=== PATIENT | male | born 1970 | race Caucasian/White ===

== ENCOUNTER 2019-11-10 20:01 | Observation (INO) ==
[2019-11-10] MEDS: Nitroglycerin 0.4 MG TAB.SUBL SL SCH (20:32)
[2019-11-10 21:17] LABS: Basophils # 0.1 K/mcL (0.0-0.2); Basophils % 0.4 %; Eosinophils # 0.1 K/mcL (0.0-0.6); Eosinophils % 0.8 %; Hemoglobin 18.2 g/dL (12.9-16.9); Immature Granulocytes % 0.4 % (0-4); Lymphocytes % 18.7 %; Mean Corpuscular HGB Conc 35.7 g/dL (31.6-35.5); Mean Corpuscular Hemoglobin 33.6 pg (28.0-33.3); Mean Corpuscular Volume 94.3 fL (83.0-100.0); Mean Platelet Volume 10.1 fL (9.4-12.4); Monocytes % 6.5 %; Neutrophils # 11.5 K/mcL (1.6-8.9); Platelet Count 187 K/mcL (140-400); Red Blood Count 5.41 M/mcL (4.19-5.50); Red Cell Distribution Width 13.1 % (11.5-14.5); Segmented Neutrophils % 73.2 %; White Blood Count 15.8 K/mcL (4.3-11.1)
[2019-11-10 21:33] LABS: BUN/Creatinine Ratio 14 (6-26); Blood Urea Nitrogen 13 mg/dL (6-20); Calcium 9.5 mg/dL (8.6-10.3); Carbon Dioxide 18 mEq/L (23-29); Chloride 101 mEq/L (98-107); Glucose 258 mg/dL (70-105); Osmolality,Calculated 289 (280-300); Potassium 3.6 mEq/L (3.5-5.1); Sodium 135 mEq/L (136-145); Troponin I < 0.03 ng/mL (< 0.04); eGFR For African Americans > 60 (> 60); eGFR For Non-African Americans > 60 (> 60)
[2019-11-10] MEDS ORDERED: Nitroglycerin 1 INCH/GM PACKET TP ONE (22:15)
[2019-11-10] MEDS ORDERED: Nitroglycerin 0.4 MG TAB.SUBL SL PRN (22:41)
[2019-11-10] MEDS ORDERED: Aspirin 81 MG TAB.CHEW PO ONE (23:00)
[2019-11-10] MEDS ORDERED: Aspirin 81 MG TAB.CHEW ONE (23:04)
[2019-11-11] MEDS: Nitroglycerin 0.4 MG TAB.SUBL SL SCH ×2 (00:11→00:12)
[2019-11-11] MEDS ORDERED: *HR* Dextrose 50 % in Water (Syg) 50 ML SYRINGE IVP PRN (02:03)
[2019-11-11] MEDS ORDERED: Dextrose Gel 15 GM/37.5 ML TUBE PO PRN ×2 (02:03)
[2019-11-11] MEDS ORDERED: D5% in Water 1,000 ML IVC PRN (02:03)
[2019-11-11 02:34] LABS: Basophils # 0.1 K/mcL (0.0-0.2); Basophils % 0.5 %; Eosinophils # 0.2 K/mcL (0.0-0.6); Eosinophils % 1.2 %; Hematocrit 48.6 % (37.5-50.1); Hemoglobin 17.2 g/dL (12.9-16.9); INR 0.9; Immature Granulocytes % 0.4 % (0-4); Lymphocytes # 2.7 K/mcL (0.6-4.6); Lymphocytes % 20.9 %; Mean Corpuscular HGB Conc 35.4 g/dL (31.6-35.5); Mean Corpuscular Hemoglobin 32.8 pg (28.0-33.3); Mean Corpuscular Volume 92.7 fL (83.0-100.0); Mean Platelet Volume 9.8 fL (9.4-12.4); Monocytes # 0.7 K/mcL (0.0-1.3); Monocytes % 5.5 %; Neutrophils # 9.4 K/mcL (1.6-8.9); Platelet Count 184 K/mcL (140-400); Prothrombin Time 10.7 Seconds (9.4-12.1); Red Blood Count 5.24 M/mcL (4.19-5.50); Red Cell Distribution Width 13.1 % (11.5-14.5); Segmented Neutrophils % 71.5 %; White Blood Count 13.1 K/mcL (4.3-11.1)
[2019-11-11 02:36] LABS: Activated Partial Thrombo Time 30.7 Seconds (26.0-36.0)
[2019-11-11 02:46] LABS: Alanine Aminotransferase 17 Units/L (7-52); Albumin 4.1 g/dL (3.5-5.7); Albumin/Globulin Ratio 1.6 (1.1-2.2); Alkaline Phosphatase 84 Units/L (34-104); Aspartate Amino Transferase 16 Units/L (13-39); BUN/Creatinine Ratio 13 (6-26); Bilirubin,Total 0.5 mg/dL (0.3-1.0); Blood Urea Nitrogen 11 mg/dL (6-20); Calcium 8.7 mg/dL (8.6-10.3); Carbon Dioxide 20 mEq/L (23-29); Chloride 105 mEq/L (98-107); Globulin 2.5 g/dL (2.4-3.5); Glucose 131 mg/dL (70-105); Osmolality,Calculated 281 (280-300); Potassium 3.5 mEq/L (3.5-5.1); Sodium 135 mEq/L (136-145); Total Protein 6.6 g/dL (6.4-8.9); eGFR For African Americans > 60 (> 60); eGFR For Non-African Americans > 60 (> 60)
[2019-11-11 02:54] LABS: Troponin I < 0.03 ng/mL (< 0.04)
[2019-11-11] MEDS ORDERED: *HR* Heparin 5,000 UNIT/ML VIAL IVP ONE (03:46)
[2019-11-11] MEDS ORDERED: *HR* Heparin 5,000 UNIT/ML VIAL IVP PRN ×2 (03:46)
[2019-11-11] MEDS ORDERED: Heparin 25,000 UNIT/250 ML D5W 25,000 UNIT/250 ML IV.SOLN IVC SCH (04:00)
[2019-11-11 04:11] LABS: Hematocrit 47.6 % (37.5-50.1); Mean Corpuscular HGB Conc 35.7 g/dL (31.6-35.5); Mean Corpuscular Hemoglobin 32.9 pg (28.0-33.3); Mean Corpuscular Volume 92.1 fL (83.0-100.0); Platelet Count 181 K/mcL (140-400); Red Blood Count 5.17 M/mcL (4.19-5.50); Red Cell Distribution Width 13.2 % (11.5-14.5); White Blood Count 11.8 K/mcL (4.3-11.1)
[2019-11-11] MEDS: Insulin LISPRO 300 UNITS/3 ML VIAL SQ SCH ×2 (05:36→13:46)
[2019-11-11] MEDS ORDERED: (Ezetimibe [Zetia] 10 MG) PO SCH (09:00)
[2019-11-11] MEDS ORDERED: Aspirin Enteric Coated 81 MG Tablet PO SCH (09:00)
[2019-11-11] MEDS ORDERED: Budesonide/Formoterol 80/4.5 1 PUFF INH IH SCH (10:00)
[2019-11-11 10:23] LABS: Estimated Average Glucose 209 mg/dl
[2019-11-11 11:14] LABS: Troponin I < 0.03 ng/mL (< 0.04)
[2019-11-11 11:26] LABS: Thyroid Stimulating Hormone 1.347 mcIU/mL (0.340-5.600)
[2019-11-11 11:53] VITALS: BP 129/70
[2019-11-11] MEDS ORDERED: *HR* Rivaroxaban 10 MG TABLET PO SCH (17:00)
== END 2019-11-11 15:13 | disposition home or self-care (01) ==
LOC: EMEROOARM 20:01 → 3BNU 20:01
PROVIDERS: ADMIT Student in an Organized Health Care Education/Training Program; ATTEND Student in an Organized Health Care Education/Training Program

== ENCOUNTER 2020-04-17 07:59 | Observation (INO) ==
[2020-04-17 08:37] LABS: Basophils # 0.1 K/mcL (0.0-0.2); Basophils % 0.8 %; Eosinophils # 0.3 K/mcL (0.0-0.6); Eosinophils % 2.4 %; Hematocrit 50.5 % (37.5-50.1); Hemoglobin 17.7 g/dL (12.9-16.9); Immature Granulocytes % 0.5 % (0-4); Lymphocytes # 2.6 K/mcL (0.6-4.6); Lymphocytes % 19.8 %; Mean Corpuscular Hemoglobin 32.4 pg (28.0-33.3); Mean Corpuscular Volume 92.3 fL (83.0-100.0); Mean Platelet Volume 10.2 fL (9.4-12.4); Monocytes # 0.9 K/mcL (0.0-1.3); Monocytes % 7.1 %; Neutrophils # 9.1 K/mcL (1.6-8.9); Platelet Count 174 K/mcL (140-400); Red Blood Count 5.47 M/mcL (4.19-5.50); Red Cell Distribution Width 13.1 % (11.5-14.5); Segmented Neutrophils % 69.4 %; White Blood Count 13.1 K/mcL (4.3-11.1)
[2020-04-17 08:55] LABS: BUN/Creatinine Ratio 20 (6-26); Blood Urea Nitrogen 17 mg/dL (6-20); Calcium 9.3 mg/dL (8.6-10.3); Carbon Dioxide 18 mEq/L (23-29); Chloride 98 mEq/L (98-107); Glucose 370 mg/dL (70-105); Osmolality,Calculated 283 (280-300); Potassium 4.6 mEq/L (3.5-5.1); Sodium 128 mEq/L (136-145); Troponin I < 0.03 ng/mL (< 0.04); eGFR For African Americans > 60 (> 60); eGFR For Non-African Americans > 60 (> 60)
[2020-04-17] MEDS ORDERED: Aspirin 81 MG TAB.CHEW PO ONE (08:59)
[2020-04-17] MEDS ORDERED: *HR* FentaNYL (PF) 100 MCG/2 ML VIAL IVP ONE (08:59)
[2020-04-17 09:00] LABS: Activated Partial Thrombo Time 42.5 Seconds (26.0-36.0); INR 1.4; Prothrombin Time 16.4 Seconds (9.4-12.1)
[2020-04-17] MEDS ORDERED: Isovue-370 500 ML BOTTLE IVP ONE (09:06)
[2020-04-17 09:08] LABS: Thyroid Stimulating Hormone 2.517 mcIU/mL (0.340-5.600)
[2020-04-17] MEDS ORDERED: Ondansetron 4 MG/2 ML VIAL IVP PRN (11:48)
[2020-04-17] MEDS ORDERED: Naloxone 0.4 MG/ML INJ IVP PRN (11:48)
[2020-04-17] MEDS ORDERED: Acetaminophen 325 MG TABLET PO PRN (11:48)
[2020-04-17] MEDS: *HR* Rivaroxaban 10 MG TABLET PO SCH (18:29)
[2020-04-17] MEDS ORDERED: Ipratropium/Albuterol Neb 3 ML IH PRN (20:54)
[2020-04-17] MEDS ORDERED: D5% in Water 1,000 ML IVC PRN (21:21)
[2020-04-17] MEDS ORDERED: *HR* Dextrose 50 % in Water (Vial) 50 ML VIAL IVP PRN (21:21)
[2020-04-17] MEDS ORDERED: Dextrose Gel 15 GM/37.5 ML TUBE PO PRN ×2 (21:21)
[2020-04-17] MEDS ORDERED: Insulin LISPRO 300 UNITS/3 ML VIAL SQ SCH (21:30)
[2020-04-18] MEDS: Insulin LISPRO 300 UNITS/3 ML VIAL SQ SCH ×5 (00:04→20:23)
[2020-04-18 07:41] LABS: BUN/Creatinine Ratio 23 (6-26); Blood Urea Nitrogen 17 mg/dL (6-20); Carbon Dioxide 19 mEq/L (23-29); Chloride 101 mEq/L (98-107); Glucose 190 mg/dL (70-105); Osmolality,Calculated 281 (280-300); Potassium 4.3 mEq/L (3.5-5.1); Sodium 132 mEq/L (136-145); eGFR For African Americans > 60 (> 60); eGFR For Non-African Americans > 60 (> 60)
[2020-04-18 07:47] LABS: Basophils # 0.1 K/mcL (0.0-0.2); Basophils % 0.9 %; Eosinophils # 0.4 K/mcL (0.0-0.6); Eosinophils % 4.6 %; Hematocrit 50.3 % (37.5-50.1); Hemoglobin 17.1 g/dL (12.9-16.9); Immature Granulocytes % 0.4 % (0-4); Lymphocytes % 24.7 %; Mean Corpuscular Hemoglobin 31.8 pg (28.0-33.3); Mean Corpuscular Volume 93.7 fL (83.0-100.0); Mean Platelet Volume 10.5 fL (9.4-12.4); Monocytes # 0.6 K/mcL (0.0-1.3); Monocytes % 7.4 %; Platelet Count 161 K/mcL (140-400); Red Blood Count 5.37 M/mcL (4.19-5.50); Red Cell Distribution Width 13.2 % (11.5-14.5)
[2020-04-18 08:42] LABS: Estimated Average Glucose 258 mg/dl
[2020-04-18] MEDS: Nicotine 21 MG PATCH.TD24 TD SCH (08:45)
[2020-04-18] MEDS: Cholecalciferol (D-3) 1,000 UNIT (25MCG) TABLET PO SCH (10:06)
[2020-04-18] MEDS: Insulin DETEMIR 100 UNIT/ML X5UNITS SQ SCH (10:06)
[2020-04-18] MEDS: Gabapentin 300 MG CAPSULE PO SCH ×3 (10:07→20:22)
[2020-04-18] MEDS: lisinopriL 10 MG TABLET PO SCH ×2 (10:07→17:21)
[2020-04-18] MEDS: PATIENT TAKING PO SCH (10:07)
[2020-04-18] MEDS: *HR* Rivaroxaban 10 MG TABLET PO SCH (17:21)
[2020-04-18] MEDS ORDERED: Insulin LISPRO 300 UNITS/3 ML VIAL SQ SCH (21:00)
[2020-04-19 06:56] LABS: BUN/Creatinine Ratio 25 (6-26); Blood Urea Nitrogen 18 mg/dL (6-20); Carbon Dioxide 19 mEq/L (23-29); Chloride 101 mEq/L (98-107); Glucose 271 mg/dL (70-105); Osmolality,Calculated 285 (280-300); Phosphorous 3.4 mg/dL (2.7-4.5); Sodium 132 mEq/L (136-145); eGFR For African Americans > 60 (> 60); eGFR For Non-African Americans > 60 (> 60)
[2020-04-19] MEDS: Cholecalciferol (D-3) 1,000 UNIT (25MCG) TABLET PO SCH (08:13)
[2020-04-19] MEDS: Gabapentin 300 MG CAPSULE PO SCH ×3 (08:13→19:54)
[2020-04-19] MEDS: Insulin LISPRO 300 UNITS/3 ML VIAL SQ SCH ×3 (08:14→17:31)
[2020-04-19] MEDS: Insulin DETEMIR 100 UNIT/ML X5UNITS SQ SCH ×2 (08:20→12:00)
[2020-04-19] MEDS: Nicotine 21 MG PATCH.TD24 TD SCH (08:20)
[2020-04-19] MEDS: PATIENT TAKING PO SCH (08:21)
[2020-04-19] MEDS ORDERED: Insulin DETEMIR 100 UNIT/ML X5UNITS SQ ONE (10:52)
[2020-04-19] MEDS: *HR* Rivaroxaban 10 MG TABLET PO SCH (17:31)
[2020-04-19] MEDS: lisinopriL 10 MG TABLET PO SCH (17:31)
[2020-04-19] MEDS ORDERED: Insulin LISPRO 300 UNITS/3 ML VIAL SQ SCH (21:00)
[2020-04-20 06:41] VITALS: BP 107/66
[2020-04-20 08:45] LABS: BUN/Creatinine Ratio 19 (6-26); Blood Urea Nitrogen 14 mg/dL (6-20); Calcium 9.1 mg/dL (8.6-10.3); Carbon Dioxide 19 mEq/L (23-29); Chloride 102 mEq/L (98-107); Glucose 249 mg/dL (70-105); Osmolality,Calculated 285 (280-300); Phosphorous 3.5 mg/dL (2.7-4.5); Potassium 4.1 mEq/L (3.5-5.1); Sodium 133 mEq/L (136-145); eGFR For African Americans > 60 (> 60); eGFR For Non-African Americans > 60 (> 60)
[2020-04-20] MEDS: Insulin DETEMIR 100 UNIT/ML X5UNITS SQ SCH ×2 (08:46→09:06)
[2020-04-20] MEDS: Cholecalciferol (D-3) 1,000 UNIT (25MCG) TABLET PO SCH (08:46)
[2020-04-20] MEDS: Insulin LISPRO 300 UNITS/3 ML VIAL SQ SCH (08:47)
[2020-04-20] MEDS: Gabapentin 300 MG CAPSULE PO SCH (08:47)
[2020-04-20] MEDS: Nicotine 21 MG PATCH.TD24 TD SCH (08:48)
[2020-04-20] MEDS: PATIENT TAKING PO SCH (08:48)
== END 2020-04-20 11:04 | disposition home or self-care (01) ==
LOC: EMEROOARM 07:59 → 3BNU 07:59 → SUATTDRO 11:48 → 3BNU 11:49
PROVIDERS: ADMIT Pharmacist; ATTEND Internal Medicine

== ENCOUNTER 2020-05-21 11:13 | Observation (INO) ==
[2020-05-21 12:06] LABS: Basophils # 0.1 K/mcL (0.0-0.2); Basophils % 0.9 %; Eosinophils # 0.7 K/mcL (0.0-0.6); Eosinophils % 6.1 %; Hematocrit 50.7 % (37.5-50.1); Hemoglobin 17.1 g/dL (12.9-16.9); Immature Granulocytes % 0.4 % (0-4); Lymphocytes # 2.6 K/mcL (0.6-4.6); Lymphocytes % 23.5 %; Mean Corpuscular HGB Conc 33.7 g/dL (31.6-35.5); Mean Corpuscular Hemoglobin 31.4 pg (28.0-33.3); Mean Corpuscular Volume 93.2 fL (83.0-100.0); Mean Platelet Volume 9.7 fL (9.4-12.4); Monocytes # 0.8 K/mcL (0.0-1.3); Monocytes % 7.2 %; Neutrophils # 6.9 K/mcL (1.6-8.9); Platelet Count 207 K/mcL (140-400); Red Blood Count 5.44 M/mcL (4.19-5.50); Red Cell Distribution Width 12.8 % (11.5-14.5); Segmented Neutrophils % 61.9 %; White Blood Count 11.2 K/mcL (4.3-11.1)
[2020-05-21] MEDS: 0.9 % Sodium Chloride 1,000 ML IVC SCH ×2 (12:09→20:52)
[2020-05-21 12:29] LABS: BUN/Creatinine Ratio 19 (6-26); Blood Urea Nitrogen 15 mg/dL (6-20); Calcium 9.3 mg/dL (8.6-10.3); Carbon Dioxide 19 mEq/L (23-29); Chloride 104 mEq/L (98-107); Glucose 224 mg/dL (70-105); Osmolality,Calculated 292 (280-300); Potassium 4.7 mEq/L (3.5-5.1); Sodium 137 mEq/L (136-145); eGFR For African Americans > 60 (> 60); eGFR For Non-African Americans > 60 (> 60)
[2020-05-21 12:30] LABS: Troponin I < 0.03 ng/mL (< 0.04)
[2020-05-21] MEDS ORDERED: Naloxone 0.4 MG/ML INJ IVP PRN (13:01)
[2020-05-21] MEDS ORDERED: Dextrose Gel 15 GM/37.5 ML TUBE PO PRN ×2 (13:09)
[2020-05-21] MEDS ORDERED: D5% in Water 1,000 ML IVC PRN (13:09)
[2020-05-21] MEDS ORDERED: *HR* Dextrose 50 % in Water (Vial) 50 ML VIAL IVP PRN (13:09)
[2020-05-21] MEDS: Insulin LISPRO 300 UNITS/3 ML VIAL SQ SCH (16:28)
[2020-05-21] MEDS ORDERED: Insulin DETEMIR 100 UNIT/ML X5UNITS SQ SCH (22:00)
[2020-05-21] MEDS ORDERED: lisinopriL 10 MG TABLET PO SCH (22:00)
[2020-05-21] MEDS: Gabapentin 300 MG CAPSULE PO SCH (22:21)
[2020-05-22] MEDS: 0.9 % Sodium Chloride 1,000 ML IVC SCH (04:59)
[2020-05-22 05:56] LABS: Basophils # 0.1 K/mcL (0.0-0.2); Basophils % 0.7 %; Eosinophils # 0.8 K/mcL (0.0-0.6); Eosinophils % 8.2 %; Hematocrit 47.3 % (37.5-50.1); Immature Granulocytes % 0.4 % (0-4); Lymphocytes # 2.4 K/mcL (0.6-4.6); Lymphocytes % 24.3 %; Mean Corpuscular HGB Conc 32.6 g/dL (31.6-35.5); Mean Corpuscular Volume 95.2 fL (83.0-100.0); Mean Platelet Volume 9.7 fL (9.4-12.4); Monocytes # 0.8 K/mcL (0.0-1.3); Monocytes % 7.7 %; Neutrophils # 5.7 K/mcL (1.6-8.9); Platelet Count 196 K/mcL (140-400); Red Blood Count 4.97 M/mcL (4.19-5.50); Red Cell Distribution Width 12.8 % (11.5-14.5); Segmented Neutrophils % 58.7 %; White Blood Count 9.7 K/mcL (4.3-11.1)
[2020-05-22 05:58] LABS: Hemoglobin 15.4 g/dL (12.9-16.9)
[2020-05-22] MEDS ORDERED: Regadenoson 0.4 MG/5 ML SYRINGE IVP ONE ×2 (05:59→09:45)
[2020-05-22 06:21] LABS: BUN/Creatinine Ratio 19 (6-26); Blood Urea Nitrogen 13 mg/dL (6-20); Calcium 8.4 mg/dL (8.6-10.3); Carbon Dioxide 17 mEq/L (23-29); Chloride 105 mEq/L (98-107); Glucose 150 mg/dL (70-105); Osmolality,Calculated 285 (280-300); Potassium 3.9 mEq/L (3.5-5.1); Sodium 136 mEq/L (136-145); eGFR For African Americans > 60 (> 60); eGFR For Non-African Americans > 60 (> 60)
[2020-05-22] MEDS: Gabapentin 300 MG CAPSULE PO SCH (07:45)
[2020-05-22] MEDS: Insulin LISPRO 300 UNITS/3 ML VIAL SQ SCH ×2 (07:50→11:30)
[2020-05-22] MEDS ORDERED: Cholecalciferol (D-3) 1,000 UNIT (25MCG) TABLET PO SCH (09:00)
[2020-05-22] MEDS ORDERED: ZETIA 10MG PO SCH (09:00)
[2020-05-22] MEDS ORDERED: *HR* Rivaroxaban 10 MG TABLET PO SCH (09:00)
[2020-05-22 11:18] VITALS: BP 119/71
== END 2020-05-22 14:27 | disposition home or self-care (01) ==
LOC: EMEROOARM 11:13 → 3BNU 11:13
PROVIDERS: ADMIT Internal Medicine; ATTEND Internal Medicine

== ENCOUNTER 2020-08-11 21:43 | Inpatient (IN) ==
[2020-08-11 23:07] LABS: Basophils # 0.1 K/mcL (0.0-0.2); Basophils % 0.7 %; Eosinophils # 0.2 K/mcL (0.0-0.6); Eosinophils % 1.3 %; Hematocrit 40.6 % (37.5-50.1); Hemoglobin 13.2 g/dL (12.9-16.9); Immature Granulocytes % 0.4 % (0-4); Lymphocytes # 1.9 K/mcL (0.6-4.6); Lymphocytes % 15.9 %; Mean Corpuscular HGB Conc 32.5 g/dL (31.6-35.5); Mean Corpuscular Hemoglobin 29.9 pg (28.0-33.3); Mean Corpuscular Volume 91.9 fL (83.0-100.0); Mean Platelet Volume 10.1 fL (9.4-12.4); Monocytes # 1.1 K/mcL (0.0-1.3); Monocytes % 9.3 %; Neutrophils # 8.8 K/mcL (1.6-8.9); Platelet Count 262 K/mcL (140-400); Red Blood Count 4.42 M/mcL (4.19-5.50); Red Cell Distribution Width 12.8 % (11.5-14.5); Segmented Neutrophils % 72.4 %; White Blood Count 12.1 K/mcL (4.3-11.1)
[2020-08-11 23:31] LABS: Bilirubin,Urine Negative (Negative); Blood,Urine Negative (Negative); Clarity,Urine Clear (Clear); Color,Urine Yellow (Yellow); Glucose,Urine (UA) >=1000 mg/dL (Normal); Ketones,Urine Negative (Negative); Leukocyte Esterase,Urine Negative (Negative); Nitrite,Urine Negative (Negative); Protein,Urine Trace mg/dL (Neg-Trace); RBC,Urine 0-3 per hpf (0-3); Specific Gravity,Urine 1.025 (1.010-1.025); WBC,Urine 0-3 per hpf (0-3)
[2020-08-11 23:38] LABS: BUN/Creatinine Ratio 13 (6-26); Blood Urea Nitrogen 10 mg/dL (6-20); Calcium 8.9 mg/dL (8.6-10.3); Carbon Dioxide 22 mEq/L (23-29); Chloride 96 mEq/L (98-107); Glucose 407 mg/dL (70-105); Osmolality,Calculated 286 (280-300); Sodium 130 mEq/L (136-145); Troponin I 0.06 ng/mL (< 0.04); eGFR For African Americans > 60 (> 60); eGFR For Non-African Americans > 60 (> 60)
[2020-08-11] MEDS ORDERED: Isovue-370 500 ML BOTTLE IVP ONE (23:54)
[2020-08-11] MEDS ORDERED: 0.9 % Sodium Chloride 1,000 ML IVC ONE (23:56)
[2020-08-12 00:25] LABS: Adenovirus Not Detected (Not Detect); Bordetella Pertussis Not Detected (Not Detect); Chlamydophila pneumoniae Not Detected (Not Detect); Coronavirus 229E Not Detected (Not Detect); Coronavirus HKU1 Not Detected (Not Detect); Coronavirus NL63 Not Detected (Not Detect); Coronavirus OC43 Not Detected (Not Detect); Human Metapneumovirus Not Detected (Not Detect); Human Rhinovirus/Enterovirus Not Detected (Not Detect); Influenza A Subtype 2009 H1 Not Detected (Not Detect); Influenza B Not Detected (Not Detect); Mycoplasma pneumoniae Not Detected (Not Detect); Parainfluenza Virus 1 Not Detected (Not Detect); Parainfluenza Virus 2 Not Detected (Not Detect); Parainfluenza Virus 3 Not Detected (Not Detect); Parainfluenza Virus 4 Not Detected (Not Detect); Respiratory Syncytial Virus Not Detected (Not Detect); SARS-CoV-2 Not Detected (Not Detect)
[2020-08-12] MEDS ORDERED: *HR* Heparin 5,000 UNIT/ML VIAL IVP ONE (00:48)
[2020-08-12] MEDS ORDERED: *HR* Heparin 5,000 UNIT/ML VIAL IVP PRN ×2 (00:48)
[2020-08-12] MEDS ORDERED: Piperacillin/Tazobactam 3.375 GM in 0.9 % Sodium Chloride Mini Bag 100 ML IVPB ONE (00:55)
[2020-08-12] MEDS ORDERED: Heparin 25,000UNIT/250ML 1/2NS 25,000 UNIT/250 ML IV.SOLN IVC SCH (01:00)
[2020-08-12] MEDS ORDERED: Naloxone 0.4 MG/ML INJ IVP PRN (02:56)
[2020-08-12] MEDS: Acetaminophen 325 MG TABLET PO PRN ×2 (04:42→18:07)
[2020-08-12 06:24] LABS: Hematocrit 38.6 % (37.5-50.1); Hemoglobin 12.5 g/dL (12.9-16.9); Mean Corpuscular HGB Conc 32.4 g/dL (31.6-35.5); Mean Corpuscular Hemoglobin 29.6 pg (28.0-33.3); Mean Corpuscular Volume 91.5 fL (83.0-100.0); Mean Platelet Volume 9.6 fL (9.4-12.4); Platelet Count 219 K/mcL (140-400); Red Blood Count 4.22 M/mcL (4.19-5.50); Red Cell Distribution Width 13.1 % (11.5-14.5); White Blood Count 11.1 K/mcL (4.3-11.1)
[2020-08-12 06:28] LABS: Heparin anti-factor XA UFH 0.57 IU/mL (0.30-0.70); INR 1.5; Prothrombin Time 16.7 Seconds (9.4-12.1)
[2020-08-12 06:47] LABS: Alanine Aminotransferase 82 Units/L (7-52); Albumin 3.8 g/dL (3.5-5.7); Alkaline Phosphatase 338 Units/L (34-104); Aspartate Amino Transferase 65 Units/L (13-39); BUN/Creatinine Ratio 11 (6-26); Bilirubin,Total 0.8 mg/dL (0.3-1.0); Blood Urea Nitrogen 8 mg/dL (6-20); Calcium 9.1 mg/dL (8.6-10.3); Carbon Dioxide 23 mEq/L (23-29); Chloride 100 mEq/L (98-107); Globulin 3.7 g/dL (2.4-3.5); Glucose 316 mg/dL (70-105); Magnesium 1.8 mg/dL (1.6-2.6); Osmolality,Calculated 284 (280-300); Phosphorous 3.1 mg/dL (2.7-4.5); Potassium 3.9 mEq/L (3.5-5.1); Sodium 132 mEq/L (136-145); Total Protein 7.5 g/dL (6.4-8.9); Troponin I 0.06 ng/mL (< 0.04); eGFR For African Americans > 60 (> 60); eGFR For Non-African Americans > 60 (> 60)
[2020-08-12] MEDS ORDERED: Perflutren Lipid Microsphere 1.3 ML in 0.9 % Sodium Chloride 8.7 ML IVP PRN (07:05)
[2020-08-12] MEDS ORDERED: *HR* Dextrose 50 % in Water (Vial) 50 ML VIAL IVP PRN (07:51)
[2020-08-12] MEDS ORDERED: D5% in Water 1,000 ML IVC PRN (07:51)
[2020-08-12] MEDS ORDERED: Dextrose Gel 15 GM/37.5 ML TUBE PO PRN ×2 (07:51)
[2020-08-12] MEDS ORDERED: Insulin Human Regular 5 UNIT in 0.9 % Sodium Chloride 10 ML IV ONE (07:55)
[2020-08-12] MEDS: Heparin 25,000UNIT/250ML 1/2NS 25,000 UNIT/250 ML IV.SOLN IVC SCH (07:59)
[2020-08-12] MEDS ORDERED: Vancomycin 500 MG in 0.9 % Sodium Chloride Mini Bag 100 ML IVPB ONE (08:00)
[2020-08-12] MEDS ORDERED: Ipratropium/Albuterol Neb 3 ML IH PRN (08:14)
[2020-08-12] MEDS: Piperacillin/Tazobactam 3.375 GM in 0.9 % Sodium Chloride Mini Bag 100 ML IVPB SCH ×3 (08:15→23:55)
[2020-08-12] MEDS: MetroNIDAZOLE 500 MG/100 ML 500 MG/100 ML BAG IVPB SCH ×3 (08:16→23:52)
[2020-08-12] MEDS: Gabapentin 300 MG CAPSULE PO SCH ×3 (09:43→20:34)
[2020-08-12] MEDS: SUB Q INSULIN DEVICE SQ SCH (09:43)
[2020-08-12 11:42] LABS: ABG Base Excess 2 mEq/L (-2 to 3); ABG HCO3 25 mEq/L (21-27); ABG Oxygen Saturation 92 % (95-98); ABG PCO2 33 mmHg (35-45); ABG PH 7.49 pH Units (7.32-7.45); ABG PO2 58 mmHg (85-104); ABG TCO2 26 mEq/L (20-26)
[2020-08-12] MEDS ORDERED: Vancomycin 1,500 MG/265 ML IV.SOLN IVPB SCH (19:00)
[2020-08-12] MEDS: Insulin DETEMIR 100 UNIT/ML X5UNITS SQ SCH (22:30)
[2020-08-12] MEDS: Insulin LISPRO 300 UNITS/3 ML VIAL SQ SCH (23:12)
[2020-08-13] MEDS: Heparin 25,000UNIT/250ML 1/2NS 25,000 UNIT/250 ML IV.SOLN IVC SCH (01:45)
[2020-08-13 01:52] LABS: Hematocrit 38.1 % (37.5-50.1); Hemoglobin 12.1 g/dL (12.9-16.9); Mean Corpuscular HGB Conc 31.8 g/dL (31.6-35.5); Mean Corpuscular Hemoglobin 29.5 pg (28.0-33.3); Mean Corpuscular Volume 92.9 fL (83.0-100.0); Mean Platelet Volume 9.9 fL (9.4-12.4); Platelet Count 227 K/mcL (140-400); White Blood Count 10.6 K/mcL (4.3-11.1)
[2020-08-13 02:11] LABS: Alanine Aminotransferase 70 Units/L (7-52); Albumin 3.6 g/dL (3.5-5.7); Albumin/Globulin Ratio 0.9 (1.1-2.2); Alkaline Phosphatase 361 Units/L (34-104); Aspartate Amino Transferase 39 Units/L (13-39); BUN/Creatinine Ratio 13 (6-26); Bilirubin,Total 0.8 mg/dL (0.3-1.0); Blood Urea Nitrogen 9 mg/dL (6-20); Calcium 9.2 mg/dL (8.6-10.3); Carbon Dioxide 24 mEq/L (23-29); Chloride 99 mEq/L (98-107); Globulin 3.9 g/dL (2.4-3.5); Glucose 261 mg/dL (70-105); Magnesium 1.8 mg/dL (1.6-2.6); Osmolality,Calculated 280 (280-300); Phosphorous 2.7 mg/dL (2.7-4.5); Potassium 3.9 mEq/L (3.5-5.1); Sodium 131 mEq/L (136-145); Total Protein 7.5 g/dL (6.4-8.9); eGFR For African Americans > 60 (> 60); eGFR For Non-African Americans > 60 (> 60)
[2020-08-13] MEDS: Insulin LISPRO 300 UNITS/3 ML VIAL SQ SCH ×10 (04:58→23:35)
[2020-08-13] MEDS: Piperacillin/Tazobactam 3.375 GM in 0.9 % Sodium Chloride Mini Bag 100 ML IVPB SCH (09:55)
[2020-08-13] MEDS: MetroNIDAZOLE 500 MG/100 ML 500 MG/100 ML BAG IVPB SCH (09:56)
[2020-08-13] MEDS: Gabapentin 300 MG CAPSULE PO SCH ×3 (09:56→21:16)
[2020-08-13] MEDS: SUB Q INSULIN DEVICE SQ SCH (09:56)
[2020-08-13] MEDS ORDERED: Furosemide 40 MG/4 ML VIAL IVP SCH (11:45)
[2020-08-13] MEDS: Insulin DETEMIR 100 UNIT/ML X5UNITS SQ SCH (21:16)
[2020-08-13] MEDS: Acetaminophen 325 MG TABLET PO PRN (21:27)
[2020-08-14 01:02] LABS: Hematocrit 39.8 % (37.5-50.1); Hemoglobin 12.8 g/dL (12.9-16.9); Mean Corpuscular HGB Conc 32.2 g/dL (31.6-35.5); Mean Corpuscular Hemoglobin 29.1 pg (28.0-33.3); Mean Corpuscular Volume 90.5 fL (83.0-100.0); Mean Platelet Volume 9.7 fL (9.4-12.4); Platelet Count 234 K/mcL (140-400); Red Cell Distribution Width 12.9 % (11.5-14.5); White Blood Count 9.9 K/mcL (4.3-11.1)
[2020-08-14 01:21] LABS: BUN/Creatinine Ratio 13 (6-26); Blood Urea Nitrogen 9 mg/dL (6-20); Calcium 8.9 mg/dL (8.6-10.3); Carbon Dioxide 25 mEq/L (23-29); Chloride 96 mEq/L (98-107); Glucose 319 mg/dL (70-105); Magnesium 1.8 mg/dL (1.6-2.6); Osmolality,Calculated 281 (280-300); Phosphorous 3.1 mg/dL (2.7-4.5); Potassium 3.8 mEq/L (3.5-5.1); Sodium 130 mEq/L (136-145); eGFR For African Americans > 60 (> 60); eGFR For Non-African Americans > 60 (> 60)
[2020-08-14] MEDS: Acetaminophen 325 MG TABLET PO PRN (02:01)
[2020-08-14] MEDS: Insulin LISPRO 300 UNITS/3 ML VIAL SQ SCH (06:19)
[2020-08-14] MEDS: SUB Q INSULIN DEVICE SQ SCH (10:00)
[2020-08-14] MEDS: Gabapentin 300 MG CAPSULE PO SCH ×3 (10:01→21:41)
[2020-08-14] MEDS ORDERED: Insulin LISPRO 300 UNITS/3 ML VIAL SQ SCH ×2 (11:30→12:00)
[2020-08-14] MEDS ORDERED: *HR* PHENYLEPHRINE 1,000 MCG/10 ML SYRINGE IVP ONE (11:37)
[2020-08-14] MEDS ORDERED: *HR* Etomidate 20 MG/10 ML AMPUL IVP ONE (11:37)
[2020-08-14] MEDS ORDERED: *HR* Rocuronium Bromide 50 MG/5 ML VIAL ONE ×3 (11:37→15:01)
[2020-08-14] MEDS ORDERED: *HR* FentaNYL (PF) 250 MCG/5 ML VIAL ONE (11:39)
[2020-08-14] MEDS ORDERED: *HR* Midazolam HCl 5 MG/5 ML VIAL IVP ONE (11:39)
[2020-08-14 13:03] LABS: Estimated Average Glucose 220 mg/dl
[2020-08-14] MEDS ORDERED: EPHEDrine 50 MG/ML VIAL ONE (13:49)
[2020-08-14] MEDS ORDERED: ceFAZolin 2,000 MG in Water for inj. (sterile) 20 ML IVP ONE (13:55)
[2020-08-14] MEDS ORDERED: Ondansetron 4 MG/2 ML VIAL IVP PRN ×2 (15:59→17:13)
[2020-08-14] MEDS ORDERED: Ketorolac 30 MG/ML VIAL IVP PRN (15:59)
[2020-08-14] MEDS ORDERED: *HR* OxyCODONE Immed Rel 5 MG TABLET PO PRN (15:59)
[2020-08-14] MEDS ORDERED: *HR* HYDROmorphone PF 0.5 MG/0.5 ML SYRINGE IVP PRN (15:59)
[2020-08-14] MEDS ORDERED: Ringers Solution, Lactated 1,000 ML IVC SCH (16:00)
[2020-08-14] MEDS ORDERED: Ipratropium/Albuterol Neb 3 ML IH PRN (17:13)
[2020-08-14] MEDS ORDERED: D5% in Water 1,000 ML IVC PRN (17:13)
[2020-08-14] MEDS ORDERED: Naloxone 0.4 MG/ML INJ IVP PRN (17:13)
[2020-08-14] MEDS ORDERED: Acetaminophen 325 MG TABLET PO PRN (17:13)
[2020-08-14] MEDS ORDERED: Dextrose Gel 15 GM/37.5 ML TUBE PO PRN ×2 (17:13)
[2020-08-14] MEDS ORDERED: *HR* Dextrose 50 % in Water (Vial) 50 ML VIAL IVP PRN (17:13)
[2020-08-14] MEDS: *HR* HYDROcodone/Acet 5/325 mg TABLET PO PRN (18:55)
[2020-08-14] MEDS: 0.9 % Sodium Chloride 1,000 ML IVC SCH (18:55)
[2020-08-14] MEDS: Patient Taking Own Medication 1 EACH SQ SCH (18:56)
[2020-08-14] MEDS: Ipratropium/Albuterol Neb 3 ML IH SCH ×2 (20:16→20:21)
[2020-08-14] MEDS: Famotidine 20 MG TABLET PO SCH (20:27)
[2020-08-14] MEDS: *HR* Heparin 5,000 UNIT/ML VIAL SQ SCH (20:28)
[2020-08-14] MEDS ORDERED: Insulin DETEMIR 100 UNIT/ML X5UNITS SQ SCH ×2 (21:00)
[2020-08-15] MEDS: Ipratropium/Albuterol Neb 3 ML IH SCH ×3 (00:09→08:03)
[2020-08-15] MEDS: *HR* HYDROcodone/Acet 5/325 mg TABLET PO PRN ×5 (02:00→23:58)
[2020-08-15] MEDS: 0.9 % Sodium Chloride 1,000 ML IVC SCH (02:00)
[2020-08-15 02:17] LABS: Hematocrit 38.4 % (37.5-50.1); Hemoglobin 12.3 g/dL (12.9-16.9); Mean Corpuscular Volume 93.7 fL (83.0-100.0); Mean Platelet Volume 9.7 fL (9.4-12.4); Platelet Count 226 K/mcL (140-400); Red Cell Distribution Width 13.2 % (11.5-14.5); White Blood Count 13.9 K/mcL (4.3-11.1)
[2020-08-15 02:38] LABS: BUN/Creatinine Ratio 20 (6-26); Blood Urea Nitrogen 13 mg/dL (6-20); Calcium 8.3 mg/dL (8.6-10.3); Carbon Dioxide 20 mEq/L (23-29); Chloride 100 mEq/L (98-107); Glucose 338 mg/dL (70-105); Magnesium 1.7 mg/dL (1.6-2.6); Osmolality,Calculated 285 (280-300); Phosphorous 3.1 mg/dL (2.7-4.5); Potassium 4.7 mEq/L (3.5-5.1); Sodium 131 mEq/L (136-145); eGFR For African Americans > 60 (> 60); eGFR For Non-African Americans > 60 (> 60)
[2020-08-15] MEDS: *HR* Heparin 5,000 UNIT/ML VIAL SQ SCH ×3 (05:45→20:12)
[2020-08-15] MEDS ORDERED: Insulin LISPRO 300 UNITS/3 ML VIAL SQ SCH ×2 (07:30→08:00)
[2020-08-15] MEDS: Gabapentin 300 MG CAPSULE PO SCH ×4 (07:36→20:13)
[2020-08-15] MEDS: Famotidine 20 MG TABLET PO SCH ×2 (07:36→20:12)
[2020-08-15] MEDS ORDERED: Dextrose Gel 15 GM/37.5 ML TUBE PO PRN ×2 (10:36)
[2020-08-15] MEDS ORDERED: D5% in Water 1,000 ML IVC PRN (10:36)
[2020-08-15] MEDS ORDERED: *HR* Dextrose 50 % in Water (Vial) 50 ML VIAL IVP PRN (10:36)
[2020-08-15] MEDS: Insulin LISPRO 300 UNITS/3 ML VIAL SQ SCH ×2 (12:13→17:08)
[2020-08-15] MEDS: Levalbuterol Neb 0.63 MG/3 ML IH SCH ×2 (16:00→21:35)
[2020-08-15] MEDS: Ipratropium Neb 0.5 MG NEBULIZER IH SCH ×2 (16:00→21:35)
[2020-08-15] MEDS ORDERED: Insulin DETEMIR 100 UNIT/ML X5UNITS SQ ONE (16:37)
[2020-08-15] MEDS: Patient Taking Own Medication 1 EACH SQ SCH (16:58)
[2020-08-15] MEDS: Insulin DETEMIR 100 UNIT/ML X5UNITS SQ SCH (20:13)
[2020-08-15] MEDS ORDERED: Insulin DETEMIR 100 UNIT/ML X5UNITS SQ SCH (21:00)
[2020-08-16] MEDS: Levalbuterol Neb 0.63 MG/3 ML IH SCH ×4 (04:07→22:27)
[2020-08-16] MEDS: Ipratropium Neb 0.5 MG NEBULIZER IH SCH ×4 (04:07→22:27)
[2020-08-16 05:15] LABS: Basophils # 0.1 K/mcL (0.0-0.2); Basophils % 0.5 %; Eosinophils # 0.2 K/mcL (0.0-0.6); Hematocrit 35.8 % (37.5-50.1); Hemoglobin 11.3 g/dL (12.9-16.9); Immature Granulocytes % 0.4 % (0-4); Lymphocytes # 1.2 K/mcL (0.6-4.6); Lymphocytes % 12.3 %; Mean Corpuscular HGB Conc 31.6 g/dL (31.6-35.5); Mean Corpuscular Hemoglobin 29.5 pg (28.0-33.3); Mean Corpuscular Volume 93.5 fL (83.0-100.0); Mean Platelet Volume 9.9 fL (9.4-12.4); Monocytes # 0.8 K/mcL (0.0-1.3); Monocytes % 8.4 %; Neutrophils # 7.2 K/mcL (1.6-8.9); Platelet Count 241 K/mcL (140-400); Red Blood Count 3.83 M/mcL (4.19-5.50); Red Cell Distribution Width 13.2 % (11.5-14.5); Segmented Neutrophils % 76.4 %; White Blood Count 9.4 K/mcL (4.3-11.1)
[2020-08-16] MEDS: *HR* Heparin 5,000 UNIT/ML VIAL SQ SCH ×3 (05:27→20:54)
[2020-08-16 05:37] LABS: BUN/Creatinine Ratio 21 (6-26); Blood Urea Nitrogen 14 mg/dL (6-20); Calcium 8.7 mg/dL (8.6-10.3); Carbon Dioxide 26 mEq/L (23-29); Chloride 97 mEq/L (98-107); Glucose 365 mg/dL (70-105); Magnesium 1.9 mg/dL (1.6-2.6); Osmolality,Calculated 285 (280-300); Potassium 4.9 mEq/L (3.5-5.1); Sodium 130 mEq/L (136-145); eGFR For African Americans > 60 (> 60); eGFR For Non-African Americans > 60 (> 60)
[2020-08-16] MEDS: CREON 24000 UNIT PO SCH ×3 (08:18→16:50)
[2020-08-16] MEDS: Famotidine 20 MG TABLET PO SCH ×2 (08:18→20:55)
[2020-08-16] MEDS: Gabapentin 300 MG CAPSULE PO SCH ×3 (08:18→20:56)
[2020-08-16] MEDS: Insulin DETEMIR 100 UNIT/ML X5UNITS SQ SCH ×2 (08:22→20:56)
[2020-08-16] MEDS: *HR* HYDROcodone/Acet 5/325 mg TABLET PO PRN ×3 (08:25→18:36)
[2020-08-16] MEDS: Insulin LISPRO 300 UNITS/3 ML VIAL SQ SCH ×4 (08:31→16:49)
[2020-08-16] MEDS ORDERED: Insulin LISPRO 300 UNITS/3 ML VIAL SQ SCH (12:00)
[2020-08-16] MEDS: Patient Taking Own Medication 1 EACH SQ SCH (20:50)
[2020-08-17 02:47] LABS: Basophils # 0.1 K/mcL (0.0-0.2); Basophils % 0.6 %; Eosinophils # 0.4 K/mcL (0.0-0.6); Eosinophils % 4.1 %; Hematocrit 37.6 % (37.5-50.1); Hemoglobin 11.9 g/dL (12.9-16.9); Immature Granulocytes % 0.3 % (0-4); Lymphocytes # 1.4 K/mcL (0.6-4.6); Lymphocytes % 15.4 %; Mean Corpuscular HGB Conc 31.6 g/dL (31.6-35.5); Mean Corpuscular Hemoglobin 28.6 pg (28.0-33.3); Mean Corpuscular Volume 90.4 fL (83.0-100.0); Mean Platelet Volume 9.6 fL (9.4-12.4); Monocytes # 0.8 K/mcL (0.0-1.3); Neutrophils # 6.6 K/mcL (1.6-8.9); Platelet Count 254 K/mcL (140-400); Red Blood Count 4.16 M/mcL (4.19-5.50); Segmented Neutrophils % 70.6 %; White Blood Count 9.4 K/mcL (4.3-11.1)
[2020-08-17 03:10] LABS: BUN/Creatinine Ratio 27 (6-26); Blood Urea Nitrogen 14 mg/dL (6-20); Calcium 8.7 mg/dL (8.6-10.3); Carbon Dioxide 25 mEq/L (23-29); Chloride 95 mEq/L (98-107); Glucose 301 mg/dL (70-105); Magnesium 1.9 mg/dL (1.6-2.6); Osmolality,Calculated 282 (280-300); Potassium 4.3 mEq/L (3.5-5.1); Sodium 130 mEq/L (136-145); eGFR For African Americans > 60 (> 60); eGFR For Non-African Americans > 60 (> 60)
[2020-08-17] MEDS: Levalbuterol Neb 0.63 MG/3 ML IH SCH ×4 (03:57→22:13)
[2020-08-17] MEDS: Ipratropium Neb 0.5 MG NEBULIZER IH SCH ×4 (03:57→22:13)
[2020-08-17] MEDS: *HR* Heparin 5,000 UNIT/ML VIAL SQ SCH ×3 (05:07→20:32)
[2020-08-17] MEDS: Famotidine 20 MG TABLET PO SCH ×2 (08:19→20:33)
[2020-08-17] MEDS: Gabapentin 300 MG CAPSULE PO SCH ×3 (08:19→20:33)
[2020-08-17] MEDS: Insulin LISPRO 300 UNITS/3 ML VIAL SQ SCH ×5 (08:26→17:55)
[2020-08-17] MEDS: CREON 24000 UNIT PO SCH ×3 (08:27→17:56)
[2020-08-17] MEDS ORDERED: *HR* Glimepiride 4 MG TABLET PO SCH (09:00)
[2020-08-17] MEDS: *HR* HYDROcodone/Acet 5/325 mg TABLET PO PRN ×3 (09:02→19:46)
[2020-08-17] MEDS: Insulin DETEMIR 100 UNIT/ML X5UNITS SQ SCH ×2 (09:02→20:39)
[2020-08-17] MEDS ORDERED: *HR* Metformin 500 MG TABLET PO SCH (17:00)
[2020-08-17] MEDS ORDERED: Insulin DETEMIR 100 UNIT/ML X5UNITS SQ ONE (17:01)
[2020-08-17] MEDS: Patient Taking Own Medication 1 EACH SQ SCH (17:56)
[2020-08-17] MEDS: (Insulin Pump Cartridge [Insulin Pump] 1 DEVICE) SQ SCH (17:56)
[2020-08-18] MEDS: *HR* HYDROcodone/Acet 5/325 mg TABLET PO PRN (00:44)
[2020-08-18 02:55] LABS: Basophils # 0.1 K/mcL (0.0-0.2); Basophils % 0.6 %; Eosinophils # 0.5 K/mcL (0.0-0.6); Eosinophils % 5.3 %; Hematocrit 38.1 % (37.5-50.1); Hemoglobin 12.1 g/dL (12.9-16.9); Immature Granulocytes % 0.5 % (0-4); Lymphocytes % 20.4 %; Mean Corpuscular HGB Conc 31.8 g/dL (31.6-35.5); Mean Corpuscular Hemoglobin 28.8 pg (28.0-33.3); Mean Corpuscular Volume 90.7 fL (83.0-100.0); Mean Platelet Volume 9.8 fL (9.4-12.4); Neutrophils # 6.1 K/mcL (1.6-8.9); Platelet Count 281 K/mcL (140-400); Segmented Neutrophils % 63.2 %; White Blood Count 9.6 K/mcL (4.3-11.1)
[2020-08-18 03:12] LABS: BUN/Creatinine Ratio 27 (6-26); Blood Urea Nitrogen 18 mg/dL (6-20); Calcium 9.1 mg/dL (8.6-10.3); Carbon Dioxide 25 mEq/L (23-29); Chloride 99 mEq/L (98-107); Glucose 194 mg/dL (70-105); Osmolality,Calculated 281 (280-300); Potassium 4.6 mEq/L (3.5-5.1); Sodium 132 mEq/L (136-145); eGFR For African Americans > 60 (> 60); eGFR For Non-African Americans > 60 (> 60)
[2020-08-18 04:14] VITALS: BP 100/76
[2020-08-18] MEDS: Levalbuterol Neb 0.63 MG/3 ML IH SCH ×2 (04:22→09:29)
[2020-08-18] MEDS: Ipratropium Neb 0.5 MG NEBULIZER IH SCH ×2 (04:22→09:29)
[2020-08-18] MEDS: *HR* Heparin 5,000 UNIT/ML VIAL SQ SCH (05:36)
[2020-08-18] MEDS: CREON 24000 UNIT PO SCH ×2 (08:20→12:05)
[2020-08-18] MEDS: Gabapentin 300 MG CAPSULE PO SCH (08:20)
[2020-08-18] MEDS: Famotidine 20 MG TABLET PO SCH (08:21)
[2020-08-18] MEDS: Insulin LISPRO 300 UNITS/3 ML VIAL SQ SCH ×4 (08:22→12:04)
[2020-08-18] MEDS: Insulin DETEMIR 100 UNIT/ML X5UNITS SQ SCH (08:22)
[2020-08-18] MEDS: (Insulin Pump Cartridge [Insulin Pump] 1 DEVICE) SQ SCH (08:23)
[2020-08-18] MEDS ORDERED: FLU Vac QV 20-21 (6Month+)/PF 0.5 ML SYRINGE IM ONE (11:43)
== END 2020-08-18 13:33 | disposition home or self-care (01) | DRG 163 ==
LOC: EMEROOARM 21:43 → 2ANU 21:43 → SUATTDRO 08-12 01:41 → 2ANU 08-12 03:15 → 2NNU 08-12 10:06 → SUATTDRO 08-13 15:28
PROVIDERS: ADMIT Family Medicine; ATTEND Pharmacist

== ENCOUNTER 2021-05-03 22:57 | Observation (INO) ==
[2021-05-03 23:52] LABS: Basophils # 0.1 K/mcL (0.0-0.2); Basophils % 0.5 %; Eosinophils # 0.2 K/mcL (0.0-0.6); Eosinophils % 1.4 %; Hematocrit 46.5 % (37.5-50.1); Hemoglobin 16.3 g/dL (12.9-16.9); Immature Granulocytes % 0.6 % (0-4); Lymphocytes # 2.5 K/mcL (0.6-4.6); Lymphocytes % 20.2 %; Mean Corpuscular HGB Conc 35.1 g/dL (31.6-35.5); Mean Corpuscular Hemoglobin 33.2 pg (28.0-33.3); Mean Corpuscular Volume 94.7 fL (83.0-100.0); Mean Platelet Volume 10.1 fL (9.4-12.4); Monocytes # 1.1 K/mcL (0.0-1.3); Monocytes % 8.6 %; Neutrophils # 8.4 K/mcL (1.6-8.9); Platelet Count 185 K/mcL (140-400); Red Blood Count 4.91 M/mcL (4.19-5.50); Red Cell Distribution Width 13.2 % (11.5-14.5); Segmented Neutrophils % 68.7 %; White Blood Count 12.2 K/mcL (4.3-11.1)
[2021-05-03] MEDS ORDERED: Isovue-370 500 ML BOTTLE IVP ONE (23:59)
[2021-05-04 00:10] LABS: BUN/Creatinine Ratio 12 (6-26); Blood Urea Nitrogen 10 mg/dL (6-20); Calcium 9.2 mg/dL (8.6-10.3); Carbon Dioxide 22 mEq/L (23-29); Chloride 104 mEq/L (98-107); Glucose 239 mg/dL (70-105); Osmolality,Calculated 291 (280-300); Potassium 3.6 mEq/L (3.5-5.1); Sodium 137 mEq/L (136-145); eGFR For African Americans > 60 (> 60); eGFR For Non-African Americans > 60 (> 60)
[2021-05-04 00:11] LABS: Troponin I < 0.03 ng/mL (< 0.04)
[2021-05-04 00:28] LABS: INR 1.1; Prothrombin Time 12.6 Seconds (9.4-12.1)
[2021-05-04 00:31] LABS: Activated Partial Thrombo Time 29.4 Seconds (26.0-36.0)
[2021-05-04] MEDS ORDERED: Aspirin 81 MG TAB.CHEW PO ONE (03:11)
[2021-05-04] MEDS ORDERED: Naloxone 0.4 MG/ML INJ IVP PRN (03:27)
[2021-05-04] MEDS ORDERED: Acetaminophen 325 MG TABLET PO PRN (03:27)
[2021-05-04] MEDS ORDERED: Albuterol 2.5 MG/3 ML NEBULIZER IH PRN (03:27)
[2021-05-04] MEDS ORDERED: Perflutren Lipid Microsphere 1.3 ML in 0.9 % Sodium Chloride 8.7 ML IVP PRN (03:33)
[2021-05-04] MEDS ORDERED: D5% in Water 1,000 ML IVC PRN (04:57)
[2021-05-04] MEDS ORDERED: Dextrose Gel 15 GM/37.5 ML TUBE PO PRN ×2 (04:57)
[2021-05-04] MEDS ORDERED: *HR* Dextrose 50 % in Water (Vial) 50 ML VIAL IVP PRN (04:57)
[2021-05-04 05:41] LABS: Estimated Average Glucose 240 mg/dl
[2021-05-04 05:55] LABS: Chol/HDL Ratio 6.1 (0-4.9); Cholesterol 134 mg/dL (< 200); HDL Cholesterol 22 mg/dL (40-59); Triglycerides 408 mg/dL (< 150)
[2021-05-04 05:56] LABS: Troponin I < 0.03 ng/mL (< 0.04)
[2021-05-04] MEDS ORDERED: *HR* Heparin 5,000 UNIT/ML VIAL SQ SCH (06:00)
[2021-05-04] MEDS ORDERED: Insulin LISPRO 300 UNITS/3 ML VIAL SUBQ SCH (06:00)
[2021-05-04] MEDS ORDERED: Levalbuterol 1 PUFF INHALER IH PRN (08:37)
[2021-05-04] MEDS ORDERED: Budesonide/Formoterol 80/4.5 1 PUFF INH IH PRN (08:37)
[2021-05-04 08:53] LABS: Thyroid Stimulating Hormone 1.146 mcIU/mL (0.340-5.600)
[2021-05-04] MEDS ORDERED: NON-FORMULARY MEDICATION 1 EACH EACH (Omega-3/Dha/Epa/Fish Oil [Fish Oil 1,000 Mg Softgel] PO SCH (09:00)
[2021-05-04] MEDS ORDERED: NON-FORMULARY MEDICATION 1 EACH EACH (Ezetimibe [Zetia] 10 MG Tablet) PO SCH (09:00)
[2021-05-04] MEDS ORDERED: Cholecalciferol (D-3) 1,000 UNIT (25MCG) TABLET PO SCH (09:00)
[2021-05-04] MEDS ORDERED: *HR* Rivaroxaban 10 MG TABLET PO SCH (09:00)
[2021-05-04] MEDS ORDERED: Patient Taking Own Medication 1 EACH SQ SCH (09:00)
[2021-05-04] MEDS ORDERED: Aspirin 81 MG TAB.CHEW PO SCH (09:00)
[2021-05-04] MEDS ORDERED: Gabapentin 300 MG CAPSULE PO SCH (09:00)
[2021-05-04 11:39] VITALS: BP 113/69; PULSE 62; TEMP 97.9; O2SAT 95
[2021-05-04] MEDS ORDERED: NON-FORMULARY MEDICATION 1 EACH EACH (Lipase/Protease/Amylase [Creon Dr 24,000 Units Capsu PO SCH (12:00)
[2021-05-04] MEDS ORDERED: lisinopriL 10 MG TABLET PO SCH (18:00)
== END 2021-05-04 14:40 | disposition home or self-care (01) ==
LOC: 2NENU 22:57 → EMEROOARM 22:57 → SUATTDRO 05-04 03:25 → 2NENU 05-04 03:45
PROVIDERS: ADMIT Family Medicine; ATTEND Internal Medicine